=== PATIENT | female | born 1990 | race Caucasian/White ===

== ENCOUNTER 2017-11-14 14:15 | Emergency (ER) | payer OTHER ==
[~2017-11-14] VITALS: Ht 180.3 cm; Wt 82.0 kg
[~2017-11-14 14:15] MED LIST: CYCL-1 PO; LIDO700A32 TOP; NO HOME MEDS
[2017-11-14 14:50] VITALS: BP 117/67
== END 2017-11-14 16:26 | disposition left against medical advice (07) ==
LOC: ER 14:16
DX: R20.0 Anesthesia of skin (principal); Z53.21 Procedure and treatment not carried out due to patient leaving prior to being seen by health care provider

== ENCOUNTER 2019-01-07 10:01 | Emergency (ER) | payer SELFPAY ==
[~2019-01-07] VITALS: Ht 177.8 cm; Wt 65.9 kg
[2019-01-07 10:37] VITALS: BP 111/76
[2019-01-07] MEDS ORDERED: predniSONE 20 mg tablet PO ONE (11:30)
[2019-01-07] MEDS ORDERED: PRED20TA PO (11:31)
== END 2019-01-07 11:42 | disposition home or self-care (01) ==
LOC: ER 10:02
DX: L23.7 Allergic contact dermatitis due to plants, except food (principal); J45.909 Unspecified asthma, uncomplicated; G89.29 Other chronic pain; F17.200 Nicotine dependence, unspecified, uncomplicated; F12.90 Cannabis use, unspecified, uncomplicated; Z88.2 Allergy status to sulfonamides; Z86.14 Personal history of Methicillin resistant Staphylococcus aureus infection; Z98.890 Other specified postprocedural states; Z79.899 Other long term (current) drug therapy
CPT/HCPCS: 99283; J7512

== ENCOUNTER 2019-01-15 21:52 | Emergency (ER) | payer SELFPAY ==
[~2019-01-15] VITALS: Ht 177.8 cm; Wt 63.6 kg
[2019-01-16] MEDS ORDERED: triamcinolone acetonide 40mg/ml inj IM ONE (00:25)
[2019-01-16] MEDS ORDERED: HYDR28CR14 TOP (00:31)
[2019-01-16 01:25] VITALS: BP 136/83
== END 2019-01-16 01:20 | disposition home or self-care (01) ==
LOC: ER 21:52
DX: L23.7 Allergic contact dermatitis due to plants, except food (principal); J45.909 Unspecified asthma, uncomplicated; G89.29 Other chronic pain; F10.99 Alcohol use, unspecified with unspecified alcohol-induced disorder; F12.90 Cannabis use, unspecified, uncomplicated; Z86.14 Personal history of Methicillin resistant Staphylococcus aureus infection; Z90.89 Acquired absence of other organs; Z88.2 Allergy status to sulfonamides; Z79.899 Other long term (current) drug therapy; Y90.9 Presence of alcohol in blood, level not specified
CPT/HCPCS: 96372; 99283; J3301

== ENCOUNTER 2023-01-08 17:28 | Emergency (ER) | payer BC, MEDICAID ==
[~2023-01-08] VITALS: Ht 175.3 cm; Wt 86.0 kg
[~2023-01-08 17:28] MED LIST changes: +HYDR28CR14 TOP
[2023-01-08 17:37] VITALS: BP 119/72; PULSE 94; RESP 16; TEMP 98.3; O2SAT 100
== END 2023-01-08 18:13 | disposition home or self-care (01) ==
LOC: ER 17:28
DX: L92.8 Other granulomatous disorders of the skin and subcutaneous tissue (principal); J45.909 Unspecified asthma, uncomplicated; G89.29 Other chronic pain; M54.9 Dorsalgia, unspecified; F12.10 Cannabis abuse, uncomplicated; Z88.2 Allergy status to sulfonamides; Z79.899 Other long term (current) drug therapy
CPT/HCPCS: 99281

== ENCOUNTER 2023-05-04 16:01 | Emergency (ER) | payer BC, MEDICAID ==
[~2023-05-04] VITALS: Ht 177.8 cm; Wt 90.1 kg
[2023-05-04 16:07] VITALS: BP 130/83; PULSE 89; RESP 18; TEMP 98; O2SAT 98
== END 2023-05-04 16:25 | disposition home or self-care (01) ==
LOC: ER 16:01
DX: J06.9 Acute upper respiratory infection, unspecified (principal); G89.29 Other chronic pain; J45.909 Unspecified asthma, uncomplicated; Z72.89 Other problems related to lifestyle; Z88.1 Allergy status to other antibiotic agents; Z88.8 Allergy status to other drugs, medicaments and biological substances
CPT/HCPCS: 99281